=== PATIENT | female | born 1985 | race Caucasian/White ===

== ENCOUNTER 2018-09-15 05:00 | Day surgery (SDC) | payer OTHER ==
[2018-09-11 11:56] LABS: HEMATOCRIT 36.3 % (36-48); HEMOGLOBIN 12.3 g/dL (12.0-16.0); RED BLOOD CELL COUNT(AUTO) 4.33 MIL/uL (4.2-6.2); WHITE BLOOD COUNT (AUTO) 7.8 K/uL (4.8-10.8)
[2018-09-11 11:57] LABS: BASOPHILS % (AUTO) 0.5 % (0.0-2.0); EOSINOPHILS # (AUTO) 0.1 K/uL (0.0-0.4); EOSINOPHILS % (AUTO) 1.7 % (0.0-4.0); LYMPHOCYTES # (AUTO) 2.6 K/uL (1.0-5.5); LYMPHOCYTES % (AUTO) 33.8 % (20.5-51.5); MEAN CORPUSCULAR HEMOGLOBIN 28 pg (27-31); MEAN CORPUSCULAR HGB CONC 34 % (32-36); MEAN CORPUSCULAR VOLUME 84 fL (79.0-98.0); MONOCYTES # (AUTO) 0.6 K/uL (0.0-1.0); MONOCYTES % (AUTO) 7.5 % (1.7-9.3); NEUTROPHILS # (AUTO) 4.4 K/uL (1.8-7.7); NEUTROPHILS % (AUTO) 56.5 % (40.0-70.0); PLATELET COUNT (AUTO) 275 K/uL (130-430); RED CELL DISTRIBUTION WIDTH 13.2 % (9.0-15.0)
[2018-09-11 12:26] LABS: BILIRUBIN,URINE NEGATIVE (NEGATIVE); BLOOD, URINE NEGATIVE (NEGATIVE); CLARITY/URINE CLEAR (CLEAR); COLOR,URINE YELLOW (YELLOW); GLUCOSE,URINE NEGATIVE (NEGATIVE); KETONES,URINE 1+ (NEGATIVE); LEUKOCYTE ESTERASE ,URINE 2+ (NEGATIVE); NITRITE, URINE NEGATIVE (NEGATIVE); PROTEIN URINE NEGATIVE (NEGATIVE); UROBILINOGEN,URINE 0.2 (0.2-1.0)
[2018-09-11 12:40] LABS: FREE T4 (FREE THYROXINE) 0.7 ng/dL (0.6-1.6)
[2018-09-11 13:14] LABS: BACTERIA,URINE MODERATE /HPF (None Seen); RBC,URINE 0-3 /HPF (0-3)
[~2018-09-15] VITALS: Ht 162.6 cm; Wt 83.0 kg
[2018-09-15] MEDS ORDERED: PROPOFOL 200MG/ 20ML VIAL (DIPRIVAN) IV ONE (06:55)
[2018-09-15] MEDS ORDERED: MIDAZOLAM HCL 5 MG/5 ML VIAL IVP ONE (06:55)
[2018-09-15] MEDS ORDERED: NS IRRIG SOLN 1000 ML IR ONE (06:55)
[2018-09-15] MEDS ORDERED: OXYTOCIN/0.9 % SODIUM CHLORIDE 20 UNITS/1,000 ML BAG IV ONE (06:55)
[2018-09-15] MEDS ORDERED: WATER FOR IRRIGATION,STERILE 1,000 ML IRRIG.SOLN IR ONE (06:55)
[2018-09-15] MEDS ORDERED: SEVOFLURANE 15 MIN GAS INH ONE (06:55)
[2018-09-15] MEDS ORDERED: LR 1,000 ML IV.SOLN IV ONE (06:55)
[2018-09-15] MEDS ORDERED: fentaNYL CITRATE/PF 100 MCG/2 ML AMP IVP ONE (06:55)
[2018-09-15] MEDS ORDERED: CEFAZOLIN 1 GM IVPB PREMIX 50 ML IV ONE ×2 (07:00→07:05)
[2018-09-15] MEDS ORDERED: ONDANSETRON HCL 4 MG/2 ML VIAL IVP PRN ×2 (07:15→07:30)
[2018-09-15] MEDS ORDERED: fentaNYL CITRATE/PF 100 MCG/2 ML AMP IVP PRN ×2 (07:15)
[2018-09-15] MEDS ORDERED: HYDROcodone/ACETAMIN 5-325 MG TAB (NORCO/ VICODIN) PO PRN (07:30)
[2018-09-15] MEDS ORDERED: OXYCODONE/ACETAMINOPHEN 5-325 TABLET PO PRN ×2 (07:30)
[2018-09-15] MEDS ORDERED: HYDROcodone/ACETAMIN 5-325 MG TAB (NORCO/ VICODIN) ONE (09:12)
[2018-09-15 09:39] VITALS: BP_SYST 112
[2018-09-15] MEDS ORDERED: CEFAZOLIN SOD 1 GM/ ISO 50 ML PREMIX IV SCH (14:00)
[2018-09-15] MEDS ORDERED: CEFAZOLIN SOD 1 GM in D5W 50 ML IV SCH (14:00)
[2018-09-15] MEDS ORDERED: CEFAZOLIN SOD IV SCH (14:00)
[2018-09-15] MEDS ORDERED: CEFAZOLIN SOD 2 GM in D5W 50 ML IV SCH (14:00)
[2018-09-15] MEDS ORDERED: NS IV SCH (14:00)
== END 2018-09-15 10:20 | disposition home or self-care (01) ==
LOC: SMU 05:00 → SDS 05:00
PROVIDERS: ATTEND Specialist
DX: O03.9 Complete or unspecified spontaneous abortion without complication (principal); E03.9 Hypothyroidism, unspecified; E28.2 Polycystic ovarian syndrome; Z79.899 Other long term (current) drug therapy; Z98.890 Other specified postprocedural states; O26.852 Spotting complicating pregnancy, second trimester
CPT/HCPCS: 36415; 59812; 81000; 84439; 84702; 85025; 86900; 86901; 88305; J0690; J2250; J2590; J2704; J3010; J7120; J7060

== ENCOUNTER 2019-01-26 15:39 | Outpatient (CLI) | payer OTHER ==
[2019-01-26 17:29] LABS: THYROID STIMULATING HORMONE 1.37 uIu/mL (0.34-4.82)
== END 2019-01-26 20:58 | disposition home or self-care (01) ==
LOC: SLB 15:39
PROVIDERS: ATTEND Specialist
DX: N92.6 Irregular menstruation, unspecified (principal)
CPT/HCPCS: 36415; 84144; 84443-TC; 84702-TC

== ENCOUNTER 2019-04-19 09:55 | Outpatient (CLI) | payer OTHER ==
[~2019-04-19 09:55] MED LIST: HYDR-4272 PO
[2019-04-19 10:50] LABS: FREE T4 (FREE THYROXINE) 1.2 ng/dl (0.8-1.5); THYROID STIMULATING HORMONE 0.66 uIu/mL (0.36-3.74)
[2019-04-20 08:06] LABS: ESTRADIOL 53.5 pg/mL (.); FOLLICLE STIMULATION HORMONE 5.8 mIU/mL (.); LUETENIZING HORMONE 8.5 mIU/mL (.)
== END 2019-04-19 17:52 | disposition home or self-care (01) ==
LOC: SLB 09:55
PROVIDERS: ATTEND Specialist
DX: N91.2 Amenorrhea, unspecified (principal); E03.9 Hypothyroidism, unspecified
CPT/HCPCS: 36415; 82670; 83001; 83002; 84439; 84443-TC; 84480; 84702-TC

== ENCOUNTER 2020-03-07 17:55 | Outpatient (CLI) | payer OTHER ==
[2020-03-07 19:28] LABS: THYROID STIMULATING HORMONE 3.65 uIu/mL (0.36-3.74)
== END 2020-03-07 21:09 | disposition home or self-care (01) ==
LOC: SLB 17:55
PROVIDERS: ATTEND Specialist
DX: N92.6 Irregular menstruation, unspecified (principal)
CPT/HCPCS: 36415; 84144; 84443-TC; 84702-TC

== ENCOUNTER 2020-11-06 13:34 | Inpatient (IN) | payer OTHER, SELFPAY ==
[~2020-11-06] VITALS: Ht 162.6 cm; Wt 85.7 kg
[2020-11-08] MEDS ORDERED: OXYTOCIN/0.9 % SODIUM CHLORIDE 1,000 ML IV SCH ×2 (05:30→16:00)
[2020-11-08] MEDS ORDERED: TERBUTALINE SULFATE 1 MG/ML VIAL SUBCUT ONE (05:30)
[2020-11-08] MEDS ORDERED: NALBUPHINE HCL 10 MG/ML AMP IVP PRN (05:30)
[2020-11-08 05:48] VITALS: BP_SYST 130
[2020-11-08] MEDS: LR 1,000 ML IV SCH ×2 (06:02→14:36)
[2020-11-08 06:33] LABS: BASOPHILS % (AUTO) 0.5 % (0.0-2.0); EOSINOPHILS # (AUTO) 0.1 K/uL (0.0-0.4); EOSINOPHILS % (AUTO) 0.7 % (0.0-4.0); HEMATOCRIT 29.4 % (36-48); HEMOGLOBIN 9.3 g/dL (12.0-16.0); LYMPHOCYTES # (AUTO) 2.2 K/uL (1.0-5.5); LYMPHOCYTES % (AUTO) 28.9 % (20.5-51.5); MEAN CORPUSCULAR HEMOGLOBIN 23 pg (27-31); MEAN CORPUSCULAR HGB CONC 32 % (32-36); MEAN CORPUSCULAR VOLUME 74 fL (79.0-98.0); MONOCYTES # (AUTO) 0.6 K/uL (0.0-1.0); MONOCYTES % (AUTO) 7.8 % (1.7-9.3); NEUTROPHILS # (AUTO) 4.7 K/uL (1.8-7.7); NEUTROPHILS % (AUTO) 62.1 % (40.0-70.0); PLATELET COUNT (AUTO) 266 K/uL (130-430); RED BLOOD CELL COUNT(AUTO) 3.98 MIL/uL (4.2-6.2); RED CELL DISTRIBUTION WIDTH 16.3 % (9.0-15.0); WHITE BLOOD COUNT (AUTO) 7.6 K/uL (4.8-10.8)
[2020-11-08] MEDS ORDERED: fentaNYL CITRATE/PF 100 MCG/2 ML AMP ONE (08:09)
[2020-11-08] MEDS ORDERED: ROPIVACAINE HCL/PF 0.2% 200 ML ONE (08:09)
[2020-11-08] MEDS ORDERED: DIPH-TET-PERTUS Vaccine 0.5 ML VIAL (ADACEL) I.M. PRN (16:00)
[2020-11-08] MEDS ORDERED: ANUSOL 1 EA SUPP.RECT (PREPARATION H) RC PRN (16:00)
[2020-11-08] MEDS ORDERED: METHYLERGONOVINE MALEATE 0.2 MG TABLET PO PRN (16:00)
[2020-11-08] MEDS ORDERED: RHO(D) IMMUNE GLOBULIN/MALTOSE 1500 UNITS/1.3 ML (WINHRO) IM PRN (16:00)
[2020-11-08] MEDS ORDERED: NALOXONE HCL 0.4 MG/ML AMP (NARCAN) IVP PRN (16:00)
[2020-11-08] MEDS ORDERED: OXYTOCIN/0.9 % SODIUM CHLORIDE 1,000 ML IV ONE (16:00)
[2020-11-08] MEDS ORDERED: HYDROcodone/ACETAMIN 5-325 MG TAB (NORCO/ VICODIN) PO PRN (16:00)
[2020-11-08] MEDS ORDERED: OXYCODONE/ACETAMINOPHEN 5-325 TABLET PO PRN ×2 (16:00)
[2020-11-08] MEDS ORDERED: DERMOPLAST SPRAY TP PRN (16:00)
[2020-11-08] MEDS ORDERED: LANOLIN 7 GM OINT. TP PRN (16:00)
[2020-11-08] MEDS ORDERED: WITCH HAZEL LEAF 1 MED.PAD MED.PAD TP PRN (16:00)
[2020-11-08] MEDS ORDERED: MEASLES,MUMPS&RUBELLA VACC/PF 12500 UNIT/0.5 ML VIAL SUBQ PRN (16:00)
[2020-11-08] MEDS ORDERED: HYDROCORTISONE 0.5% CREAM 28.4 GM CREAM.GM. TP PRN (16:00)
[2020-11-08] MEDS: IBUPROFEN 600 MG TABLET PO SCH ×2 (17:32→23:46)
[2020-11-08] MEDS ORDERED: SENNOSIDES/DOCUSATE SODIUM 1 TAB TABLET(SENOKOT-S) PO SCH (21:00)
[2020-11-08] MEDS ORDERED: TEMAZEPAM 15 MG CAPSULE PO PRN (21:00)
[2020-11-09] MEDS: IBUPROFEN 600 MG TABLET PO SCH ×3 (06:27→18:24)
[2020-11-09 06:44] LABS: BASOPHILS % (AUTO) 0.3 % (0.0-2.0); EOSINOPHILS # (AUTO) 0.1 K/uL (0.0-0.4); EOSINOPHILS % (AUTO) 0.6 % (0.0-4.0); HEMATOCRIT 26.8 % (36-48); HEMOGLOBIN 8.5 g/dL (12.0-16.0); LYMPHOCYTES # (AUTO) 2.5 K/uL (1.0-5.5); MEAN CORPUSCULAR HEMOGLOBIN 24 pg (27-31); MEAN CORPUSCULAR HGB CONC 32 % (32-36); MEAN CORPUSCULAR VOLUME 74 fL (79.0-98.0); MONOCYTES # (AUTO) 0.7 K/uL (0.0-1.0); MONOCYTES % (AUTO) 6.7 % (1.7-9.3); NEUTROPHILS # (AUTO) 6.8 K/uL (1.8-7.7); NEUTROPHILS % (AUTO) 67.4 % (40.0-70.0); PLATELET COUNT (AUTO) 236 K/uL (130-430); RED BLOOD CELL COUNT(AUTO) 3.61 MIL/uL (4.2-6.2); RED CELL DISTRIBUTION WIDTH 16.4 % (9.0-15.0); WHITE BLOOD COUNT (AUTO) 10.1 K/uL (4.8-10.8)
[2020-11-09] MEDS: DOCUSATE SODIUM 100 MG CAPSULE PO SCH ×2 (12:16→18:24)
== END 2020-11-09 20:03 | disposition home or self-care (01) | DRG 807 ==
LOC: SPU 11-08 05:10
PROVIDERS: ADMIT Specialist; ATTEND Specialist
PROC: 10E0XZZ Delivery of Products of Conception, External Approach (ICD-10-PCS; principal; 2020-11-08)
PROC: 10907ZC Drainage of Amniotic Fluid, Therapeutic from Products of Conception, Via Natural or Artificial Opening (ICD-10-PCS; 2020-11-08)
PROC: 3E0R3BZ Introduction of Anesthetic Agent into Spinal Canal, Percutaneous Approach (ICD-10-PCS; 2020-11-08)
PROC: 00HU33Z Insertion of Infusion Device into Spinal Canal, Percutaneous Approach (ICD-10-PCS; 2020-11-08)
PROC: 3E033VJ Introduction of Other Hormone into Peripheral Vein, Percutaneous Approach (ICD-10-PCS; 2020-11-08)
DX: O48.0 Post-term pregnancy (principal); Z37.0 Single live birth; O69.81X0 Labor and delivery complicated by cord around neck, without compression, not applicable or unspecified; O99.214 Obesity complicating childbirth; E66.01 Morbid (severe) obesity due to excess calories; E03.9 Hypothyroidism, unspecified; Z20.822 Contact with and (suspected) exposure to COVID-19; O99.284 Endocrine, nutritional and metabolic diseases complicating childbirth; Z3A.40 40 weeks gestation of pregnancy
CPT/HCPCS: 36415; 81002; 82947; 85025; 86592; 86886; 86900; 86901; 87536; 94760; J2590; J3010; U0003

== ENCOUNTER 2022-12-17 11:42 | Outpatient (CLI) | payer OTHER | END 2022-12-17 19:26 | disposition short-term general hospital (02) | LOC: SLB 11:42 | PROVIDERS: ATTEND Specialist | DX: N92.6 Irregular menstruation, unspecified (principal) | CPT/HCPCS: 36415; 84144; 84702 ==